=== PATIENT | male | born 1955 | race Two or more races ===

== ENCOUNTER 2019-06-12 14:04 | Emergency (ER) | payer MEDICARE, OTHER ==
[~2019-06-12] VITALS: Ht 167.6 cm; Wt 90.7 kg
[2019-06-12 15:18] VITALS: BP 112/73
[2019-06-12] MEDS ORDERED: TETANUS-DIPTH-ACEL PERTUSSIS 0.5ML SYRG IM ONE (15:45)
== END 2019-06-12 16:16 | disposition home or self-care (01) ==
LOC: ER 14:11
DX: S51.832A Puncture wound without foreign body of left forearm, initial encounter (principal); W54.0XXA Bitten by dog, initial encounter; Y93.89 Activity, other specified; Y92.89 Other specified places as the place of occurrence of the external cause; Y99.8 Other external cause status
CPT/HCPCS: 90471; 90715